=== PATIENT | female | born 1980 | race Caucasian/White ===

== ENCOUNTER 2018-02-24 18:10 | Emergency (ER) | payer OTHER ==
[~2018-02-24] VITALS: Ht 175.3 cm; Wt 81.7 kg
[~2018-02-24 18:10] MED LIST: ALBU90OI INH; Augmentin 875-1 EACH PO; Bactrim Ds Tab1 EACH PO; CEPH500 PO; CYCL10 PO; Cleocin HCl150 MG PO; Flonase 0.05% N16 GM; IBUP600 PO; IBUP800 PO; Norco 5-325 Ta1 EACH PO; PLAN B ONE-STE1.5 MG PO; PSEU120ER PO; Percocet 5-3251 EACH PO; SULTRIDS PO; Vibramycin100 MG PO
[2018-02-24] MEDS ORDERED: IBUP800 PO (18:56)
[2018-02-24] MEDS ORDERED: Crutch1 EACH XX (18:57)
== END 2018-02-24 19:20 | disposition home or self-care (01) ==
LOC: ER 18:10
DX: G89.29 Other chronic pain (principal); M25.561 Pain in right knee; Z87.891 Personal history of nicotine dependence
CPT/HCPCS: 29505; 96372; 99283; J1885

== ENCOUNTER 2018-03-23 12:41 | Emergency (ER) | payer OTHER ==
[~2018-03-23] VITALS: Ht 175.3 cm; Wt 78.0 kg
[~2018-03-23 12:41] MED LIST changes: +Crutch1 EACH XX
[2018-03-23] MEDS ORDERED: Benadryl 50 mg50 MG PO (14:56)
[2018-03-23] MEDS ORDERED: Tylenol325 MG PO (14:56)
[2018-03-23] MEDS ORDERED: ALBU90OI INH (14:56)
== END 2018-03-23 15:52 | disposition home or self-care (01) ==
LOC: ER 12:41
DX: R51 Headache (principal); F17.200 Nicotine dependence, unspecified, uncomplicated
CPT/HCPCS: 36415; 81000; 81025; 94640

== ENCOUNTER 2018-05-22 18:32 | Emergency (ER) | payer OTHER ==
[~2018-05-22] VITALS: Ht 177.8 cm; Wt 83.9 kg
[~2018-05-22 18:32] MED LIST changes: +Benadryl 50 mg50 MG PO; +Tylenol325 MG PO
[2018-05-22] MEDS ORDERED: ALBU90OI INH (19:54)
== END 2018-05-22 20:00 | disposition home or self-care (01) ==
LOC: ER 18:32
DX: J32.9 Chronic sinusitis, unspecified (principal); F17.200 Nicotine dependence, unspecified, uncomplicated

== ENCOUNTER 2018-12-17 10:53 | Emergency (ER) | payer OTHER ==
[~2018-12-17] VITALS: Ht 177.8 cm; Wt 77.1 kg
[2018-12-17] MEDS ORDERED: Amoxicillin875 MG PO (11:27)
[2018-12-17] MEDS ORDERED: Mucinex600 MG PO (11:27)
[2018-12-17] MEDS ORDERED: ALBU90OI INH (11:27)
== END 2018-12-17 11:40 | disposition home or self-care (01) ==
LOC: ER 10:53
DX: K04.7 Periapical abscess without sinus (principal); J32.9 Chronic sinusitis, unspecified; J06.9 Acute upper respiratory infection, unspecified; Z79.899 Other long term (current) drug therapy; J45.909 Unspecified asthma, uncomplicated; F17.200 Nicotine dependence, unspecified, uncomplicated
CPT/HCPCS: 99283

== ENCOUNTER 2023-09-21 13:34 | Emergency (ER) | payer OTHER ==
[~2023-09-21] VITALS: Ht 180.3 cm; Wt 81.7 kg
[~2023-09-21 13:34] MED LIST changes: +Amoxicillin875 MG PO; +Cleocin HCl300 MG PO; +Mucinex600 MG PO
[2023-09-21 13:58] VITALS: BP 121/82
[2023-09-21] MEDS ORDERED: SUBOXONE 8 MG-1 EACH SL ×3 (16:57→17:24)
[2023-09-21] MEDS ORDERED: HYDHCL25 PO ×3 (17:13→17:24)
== END 2023-09-21 17:33 | disposition home or self-care (01) ==
LOC: ER 13:34
DX: F11.11 Opioid abuse, in remission (principal); F17.200 Nicotine dependence, unspecified, uncomplicated
CPT/HCPCS: 99284; A9270

== ENCOUNTER 2024-08-14 11:26 | Observation (INO) | payer OTHER ==
[~2024-08-14] VITALS: Ht 175.3 cm; Wt 91.0 kg
[~2024-08-14 11:26] MED LIST changes: +DOXY100 PO; +EMTRICITABINE-1 EAC5 PO; +HYDHCL25 PO; +LEVE500 PO; +NITR100CA PO; +PRED20 PO; +SUBOXONE 8 MG-1 EACH SL; +TIVICAY50 MG PO
[2024-08-14] MEDS ORDERED: MethylPREDNISolone Sod Succ 125 MG Vial IV ONE (11:50)
[2024-08-14] MEDS ORDERED: Ipratropium/Albuterol SulF 2.5-0.5MG/3 ML Amp INH ONE (11:50)
[2024-08-14] MEDS ORDERED: Albuterol 2.5 MG/3 ML VIAL INH SCH ×2 (11:50→14:00)
[2024-08-14 12:00] LABS: BASOPHILS ABSOLUTE AUTO 0.08 K/mm3 (0.00-0.23); BASOPHILS PERCENT AUTO 1 % (0-2); EOSINOPHILS ABSOLUTE AUTO 0.51 K/mm3 (0.00-0.68); EOSINOPHILS PERCENT AUTO 8 % (0-6); Hematocrit 39.8 % (33.0-51.0); Hemoglobin 13.9 g/dL (11.5-16.0); IMMATURE GRAN PERCENT AUTO 0 % (0-1); LYMPHOCYTES ABSOLUTE AUTO 2.75 K/mm3 (0.84-5.20); LYMPHOCYTES PERCENT AUTO 40 % (21-46); MONOCYTES ABSOLUTE AUTO 0.36 K/mm3 (0.16-1.47); MONOCYTES PERCENT AUTO 5 % (4-13); Mean Corpuscular HGB 31.2 pg (26.0-34.0); Mean Corpuscular HGB Conc 34.9 g/dL (31.5-36.5); Mean Corpuscular Volume 89 fL (80-100); Mean Platelet Volume 9.6 fL (9.1-12.4); NEUTROPHILS ABSOLUTE AUTO 3.12 K/mm3 (1.96-9.15); NEUTROPHILS PERCENT AUTO 46 % (41-73); Platelet Count 270 K/mm3 (150-400); RDW Standard Deviation 35.8 fL (35.1-46.3); Red Blood Cell Count 4.46 M/mm3 (3.80-5.20); White Blood Cell Count 6.82 K/mm3 (4.00-11.30)
[2024-08-14 12:05] LABS: Base Excess Venous 3.5 mmol/L; Bicarbonate Venous 26.1 mmol/L (24.0-30.0); PCO2 Venous 55.4 mmHg (38-42); pH Blood Venous 7.33 (7.34-7.37)
[2024-08-14 12:24] LABS: Albumin, Blood 3.7 g/dL (3.4-5.0); Albumin/Globulin Ratio 0.9 (0.8-1.8); Bilirubin, Total 0.6 mg/dL (0.1-1.0); Bun/Creatinine Ratio 12.7 (12.0-20.0); Calcium, Blood 9.4 mg/dL (8.5-10.1); Creatinine, Blood 0.95 mg/dL (0.40-1.00); Globulin, Blood 4.1 g/dL (2.2-4.0); Magnesium, Blood 1.9 mg/dL (1.6-2.4); Potassium, Blood 4.1 mmol/L (3.5-5.5); Total Protein, Blood 7.8 g/dL (6.4-8.2)
[2024-08-14 13:12] LABS: Influenza A, PCR NEGATIVE (NEGATIVE); Influenza B, PCR NEGATIVE (NEGATIVE); Resp Syncytial Virus, PCR NEGATIVE (NEGATIVE); SARS-Cov-2 (COVID-19) PCR, MMC NEGATIVE (NEGATIVE)
[2024-08-14] MEDS ORDERED: Azithromycin 250 MG Tab PO ONE (14:00)
[2024-08-14] MEDS ORDERED: FLU VACC TS2024-25(6MOS UP)/PF 45 MCG/0.5 ML SYRINGE IM SCH (14:55)
[2024-08-14] MEDS ORDERED: Naloxone HCl 0.4MG / ML 1ML Vial IV PRN (14:55)
[2024-08-14] MEDS ORDERED: Ondansetron 4 MG TAB PO PRN (15:00)
[2024-08-14] MEDS ORDERED: Tiotropium Bromide 2.5 MCG/ACT MIST INHAL (10 ACT/4 GM) INH SCH (15:00)
[2024-08-14] MEDS ORDERED: TraZODone HCl 50 MG Tab PO PRN (15:00)
[2024-08-14] MEDS ORDERED: Ipratropium/Albuterol SulF 2.5-0.5MG/3 ML Amp INH SCH (15:00)
[2024-08-14] MEDS ORDERED: Acetaminophen 325 MG TABLET PO PRN (15:00)
[2024-08-14] MEDS ORDERED: Mometasone/Formoterol MDI 200/5 mcg 13 GM INH SCH (15:10)
[2024-08-14] MEDS ORDERED: MethylPREDNISolone Sod Succ 125 MG Vial IV SCH (16:00)
[2024-08-14 18:04] VITALS: BP 141/94
--- NOTE | 2024-08-14 18:27 | NUR ---
TRANSFER PT ARRIVED A&OX4, COOPERATIVE, ABLE TO MAKE NEEDS KNOWN. ARRIVED 1755 FROM ED VIA GURNEY. PT STAND PIVOT TO BED UNSTEADY, USE 2 PERSON TRANSFER AT FIRST. HEAD TO TOE ASSESSMENT NEEDS TO BE COMPLETED. REPORTS PAIN BACK AND CHEST. REGULAR DIET, INTRODUCED TO ROOM AND CALL LIGHT. BED IN LOWEST POSITION AND CALL LIGHT WITHIN REACH.
[2024-08-14] MEDS ORDERED: Methadone HCL 10 MG TAB PO SCH (21:00)
[2024-08-14] MEDS ORDERED: LevETIRAcetam 500 MG Tab PO SCH (21:00)
[2024-08-15 05:02] VITALS: BP 106/74
[2024-08-15 05:50] LABS: BASOPHILS PERCENT AUTO 0 % (0-2); EOSINOPHILS PERCENT AUTO 0 % (0-6); Hematocrit 38.4 % (33.0-51.0); Hemoglobin 13.1 g/dL (11.5-16.0); IMMATURE GRAN ABSOLUTE AUTO 0.02 K/mm3 (0.00-0.10); IMMATURE GRAN PERCENT AUTO 0 % (0-1); LYMPHOCYTES ABSOLUTE AUTO 0.88 K/mm3 (0.84-5.20); LYMPHOCYTES PERCENT AUTO 14 % (21-46); MONOCYTES ABSOLUTE AUTO 0.06 K/mm3 (0.16-1.47); MONOCYTES PERCENT AUTO 1 % (4-13); Mean Corpuscular HGB 30.5 pg (26.0-34.0); Mean Corpuscular HGB Conc 34.1 g/dL (31.5-36.5); Mean Corpuscular Volume 89 fL (80-100); Mean Platelet Volume 10.1 fL (9.1-12.4); NEUTROPHILS ABSOLUTE AUTO 5.35 K/mm3 (1.96-9.15); NEUTROPHILS PERCENT AUTO 85 % (41-73); Platelet Count 231 K/mm3 (150-400); RDW Coefficient Variation 11.1 % (11.7-14.2); RDW Standard Deviation 35.8 fL (35.1-46.3); White Blood Cell Count 6.31 K/mm3 (4.00-11.30)
--- NOTE | 2024-08-15 06:10 | NUR ---
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 PATIENT COMPLAINED OF PAIN AND NAUSEA AND AND PRN MEDS WERE GIVEN.
[2024-08-15 06:19] LABS: Albumin, Blood 3.3 g/dL (3.4-5.0); Albumin/Globulin Ratio 0.8 (0.8-1.8); Bilirubin, Total 0.4 mg/dL (0.1-1.0); Bun/Creatinine Ratio 25.3 (12.0-20.0); Calcium, Blood 9.3 mg/dL (8.5-10.1); Creatinine, Blood 0.75 mg/dL (0.40-1.00); Globulin, Blood 3.9 g/dL (2.2-4.0); Potassium, Blood 4.5 mmol/L (3.5-5.5); Total Protein, Blood 7.2 g/dL (6.4-8.2)
[2024-08-15 07:44] VITALS: BP 109/63
[2024-08-15] MEDS ORDERED: Methadone HCL 10 MG TAB PO SCH (09:00)
[2024-08-15] MEDS ORDERED: Heparin Sodium,Porcine 5,000 UNIT/0.5 ML SDV SC SCH (09:00)
[2024-08-15] MEDS ORDERED: AIRDUO RESPICL1 EAC4 INH (13:44)
[2024-08-15] MEDS ORDERED: PRED20 PO (13:47)
[2024-08-15 15:32] VITALS: BP 124/71
--- NOTE | 2024-08-15 15:48 | NUR ---
DISCHARGE 1545 PT A&OX4, COOPERATIVE, ABLE TO MAKE NEEDS KNOWN. TRANSPORTED VIA WHEELCHAIR TO PT ENTRANCE TO GET RIDE FROM EX- TO HOME. PT IS DISTRAUGHT ABOUT CHOOSING TO GO HOME. PAPERWORK AND BELONGINGS WITH PT DURING TRANSPORT.
== END 2024-08-15 15:47 | disposition home or self-care (01) ==
LOC: ER 11:26 → ERHOLD 11:27 → EDBEDREQ 15:23 → MEDS 17:53
PROVIDERS: Student in an Organized Health Care Education/Training Program; ADMIT Hospitalist
DX: J44.1 Chronic obstructive pulmonary disease with (acute) exacerbation (principal); G40.909 Epilepsy, unspecified, not intractable, without status epilepticus; F17.200 Nicotine dependence, unspecified, uncomplicated; Z79.52 Long term (current) use of systemic steroids; Z79.899 Other long term (current) drug therapy; Z86.19 Personal history of other infectious and parasitic diseases; Z98.51 Tubal ligation status; Z90.49 Acquired absence of other specified parts of digestive tract
CPT/HCPCS: 0241U; 36415; 71045; 80053; 82803; 83735; 84145; 85025; 93005; 93010; 94640; 94644; 94645; 94664; 94760; 96372; 96374; 96376; 97162; 97530; 99285-25; A9270; G0378; J1644; J2919

== ENCOUNTER 2024-09-21 09:07 | Emergency (ER) | payer OTHER ==
[~2024-09-21] VITALS: Ht 177.8 cm; Wt 95.2 kg
[~2024-09-21 09:07] MED LIST changes: +AIRDUO RESPICL1 EAC4 INH
[2024-09-21] MEDS ORDERED: Ketorolac Tromethamine 30mg Vial IV ONE (09:45)
[2024-09-21] MEDS ORDERED: Methyl Salicylate/Menth/Camph 57 GM TUBE TOP ONE (09:45)
[2024-09-21] MEDS ORDERED: Methocarbamol 500 MG Tab PO ONE ×2 (09:45→10:05)
[2024-09-21 09:49] LABS: Source, Urine Clean Catch
[2024-09-21 10:07] LABS: Appearance, Urine Clear (Clear); Bilirubin, Urine Neg (Neg); Blood, Urine 3+ (Neg); Color, Urine Yellow (P-Yellow); Glucose Qualitative, Urine Neg (Neg); Ketones, Urine Neg (Neg); Leukocyte Esterase, Urine Neg (Neg); Nitrite, Urine Neg (Neg); Protein, Urine Neg (Neg); Urobilinogen, Urine NORM (Normal)
[2024-09-21 10:16] LABS: BASOPHILS ABSOLUTE AUTO 0.05 K/mm3 (0.00-0.23); BASOPHILS PERCENT AUTO 1 % (0-2); EOSINOPHILS ABSOLUTE AUTO 0.25 K/mm3 (0.00-0.68); EOSINOPHILS PERCENT AUTO 6 % (0-6); Hematocrit 35.3 % (33.0-51.0); Hemoglobin 11.9 g/dL (11.5-16.0); IMMATURE GRAN ABSOLUTE AUTO 0.01 K/mm3 (0.00-0.10); IMMATURE GRAN PERCENT AUTO 0 % (0-1); LYMPHOCYTES ABSOLUTE AUTO 1.74 K/mm3 (0.84-5.20); LYMPHOCYTES PERCENT AUTO 40 % (21-46); MONOCYTES PERCENT AUTO 7 % (4-13); Mean Corpuscular HGB 31.4 pg (26.0-34.0); Mean Corpuscular HGB Conc 33.7 g/dL (31.5-36.5); Mean Corpuscular Volume 93 fL (80-100); Mean Platelet Volume 10.3 fL (9.1-12.4); NEUTROPHILS ABSOLUTE AUTO 1.97 K/mm3 (1.96-9.15); NEUTROPHILS PERCENT AUTO 46 % (41-73); Platelet Count 215 K/mm3 (150-400); RDW Coefficient Variation 11.9 % (11.7-14.2); RDW Standard Deviation 40.4 fL (35.1-46.3); Red Blood Cell Count 3.79 M/mm3 (3.80-5.20); White Blood Cell Count 4.32 K/mm3 (4.00-11.30)
[2024-09-21 10:33] LABS: Bacteria Rare /hpf; Squamous Epithelial Cells Few /hpf (Few); White Blood Cells, Urine 0-2 /hpf (0-5)
[2024-09-21 10:39] LABS: Albumin, Blood 3.1 g/dL (3.4-5.0); Albumin/Globulin Ratio 1.1 (0.8-1.8); Bilirubin, Total 0.3 mg/dL (0.1-1.0); Bun/Creatinine Ratio 19.7 (12.0-20.0); Calcium, Blood 8.5 mg/dL (8.5-10.1); Creatinine, Blood 0.81 mg/dL (0.40-1.00); Globulin, Blood 2.9 g/dL (2.2-4.0); Magnesium, Blood 1.8 mg/dL (1.6-2.4); Potassium, Blood 4.2 mmol/L (3.5-5.5)
[2024-09-21] MEDS ORDERED: FLUTICASONE-SA1 EA12 INH (11:38)
[2024-09-21] MEDS ORDERED: BUDESONIDE-FO10.2 G3 INH (11:38)
[2024-09-21] MEDS ORDERED: PRAMIPEXOLE0.125 M1 PO (11:39)
[2024-09-21] MEDS ORDERED: METH10 PO (11:40)
[2024-09-21] MEDS ORDERED: Robaxin750 MG PO (12:29)
[2024-09-21 12:30] VITALS: BP 114/68
== END 2024-09-21 13:03 | disposition home or self-care (01) ==
LOC: ER 09:07
PROVIDERS: Student in an Organized Health Care Education/Training Program
DX: S39.012A Strain of muscle, fascia and tendon of lower back, initial encounter (principal); J44.89 Other specified chronic obstructive pulmonary disease; F17.200 Nicotine dependence, unspecified, uncomplicated; X58.XXXA Exposure to other specified factors, initial encounter; Z79.51 Long term (current) use of inhaled steroids; Z79.52 Long term (current) use of systemic steroids; Z79.899 Other long term (current) drug therapy
CPT/HCPCS: 74177; 80053; 81001; 83735; 85025; 96374; 99284-25; A9270; J1885; Q9967

== ENCOUNTER 2025-08-23 13:25 | Emergency (ER) | payer OTHER ==
[~2025-08-23] VITALS: Ht 177.8 cm; Wt 240.0 kg
[~2025-08-23 13:25] MED LIST changes: +BUDESONIDE-FO10.2 G3 INH; +FLUTICASONE-SA1 EA12 INH; +METH10 PO; +PRAMIPEXOLE0.125 M1 PO; +Robaxin750 MG PO
[2025-08-23 14:52] VITALS: BP 158/100
[2025-08-23] MEDS ORDERED: Ketorolac Tromethamine 30mg Vial IV ONE (15:50)
[2025-08-23] MEDS ORDERED: GABA300 PO (16:50)
== END 2025-08-23 17:21 | disposition home or self-care (01) ==
LOC: ER 13:25
DX: K08.89 Other specified disorders of teeth and supporting structures (principal); J44.9 Chronic obstructive pulmonary disease, unspecified; F11.90 Opioid use, unspecified, uncomplicated; Z76.0 Encounter for issue of repeat prescription; Z79.899 Other long term (current) drug therapy; F17.200 Nicotine dependence, unspecified, uncomplicated
CPT/HCPCS: 64400; 96374-59; 99282-25; A9270; J1885